=== PATIENT | female | born 1955 | race Caucasian/White ===

== ENCOUNTER → 2023-02-18 | Outpatient (CLI) | payer MEDICARE, SELFPAY ==
[2023-02-18 12:29] LABS: Absolute Lymphocyte Count 1.56 X10^3/uL (0.83-4.51); Absolute Neutrophil Count 3.1 X10^3/uL (2.0-7.7); Basophil# 0.03 X10^3/uL; Basophil% 0.6 % (0-1); Eosinophil# 0.18 X10^3/uL; Eosinophils% 3.3 % (0-5); Hematocrit 40.2 % (37-47); Hemoglobin 12.8 g/dL (12.0-15.0); Lymphocyte # 1.56 X10^3/ul (0.83-4.51); Mean Corp Hgb Conc 31.8 g/dL (32-36); Mean Corpuscular Hgb 29.6 pg (27.0-32.0); Mean Corpuscular Volume 92.8 fL (81-99); Mean Platelet Vol. 10.1 fl (6.2-12.0); Monocyte# 0.51 X10^3/uL; Monocyte% 9.5 % (0-10); NRBC Flagged by Analyzer 0 % (0-5); Neutrophil # 3.08 X10^3/uL (2.7-7.7); Neutrophil % 57.2 % (47-70); Platelet Count 200 K/mm3 (150-450); RBC Distribution Width CV 12.7 % (11.6-14.6); RBC Distribution Width SD 43.4 fl (35.1-43.9); Red Blood Count 4.33 M/mm3 (4.2-5.4); White Blood Count 5.4 K/mm3 (4.4-11.0)
[2023-02-18 12:45] LABS: Hemoglobin A1c 6.4 % (3.8-5.6)
[2023-02-18 12:59] LABS: ALB/GLOB Ratio 0.9 RATIO (0.9-2.4); AST(SGOT) 21 U/L (15-37); Alanine Aminotransfer ALT/SGPT 24 U/L (13-56); Albumin, Serum 3.5 g/dL (3.2-5.0); Alkaline Phosphatase 89 U/L (45-117); Anion Gap 5 (5-15); BUN 17 mg/dL (7-18); Calcium,Total 9.1 mg/dL (8.5-10.1); Chloride 106 mmol/L (98-107); Cholesterol 202 mg/dL (200); Creatinine, Serum 1.06 mg/dL (0.55-1.02); EST Glomerular Filtration Rate 55 mL/min (>60); Est Glom Filt Rate - Afr Amer 67 mL/min (>60); Globulin 3.8 g/dL (2.2-4.2); Glucose 166 mg/dL (74-106); High Density Lipoprotein 73 mg/dL; Potassium 4.2 mmol/L (3.5-5.1); Protein, Total 7.3 g/dL (6.4-8.2); Sodium Level 137 mmol/L (136-145); Thyroid Stim Hormone (TSH) 2.52 uIU/mL (0.358-3.74); Triglycerides 101 mg/dL; Very Low Density Lipoprotein 20 mg/dL (5-40)
== END | disposition home or self-care (01) ==
PROVIDERS: PCP Internal Medicine; Referring Provider Internal Medicine; Visit Provider Internal Medicine
DX: E78.5 Hyperlipidemia, unspecified (principal); E11.9 Type 2 diabetes mellitus without complications; E03.9 Hypothyroidism, unspecified
CPT/HCPCS: 36415; 80053; 80061; 83036; 84443; 85025

== ENCOUNTER → 2023-03-19 | Outpatient (CLI) | payer MEDICARE, OTHER, SELFPAY ==
--- NOTE | 2023-03-19 14:15 | SP.MBSS_ITS ---
Modified Barium Swallow Patient Information Study Date: 03/19/23 Study Time: 13:10 Direct Billable Minutes: 90 Total Minutes procedure & reportin Diagnosis: Dysphagia Referring Physician: Marcial Riley Reason for Referral: Patient reports difficulty swallowing large pills. Additionally endorses coughing w/ liquids and on her own saliva (~1x/month) w/ subsequent hoarse vocal quality following these events. Medical History: Hypothyroidism, HLD, HTN, DMII Current Diet Ordered: Regular Textures/Thin Liquids Dentition: WNL Mental Status: WNL Respiratory Status: Oxygenating on Room Air Penetration-Aspiration Scale Penetration-Aspiration Scale: OBJECTIVE ASSESSMENT OF SWALLOW FUNCTION (QUANTITATIVE ? PER TRIAL): PENETRATION / ASPIRATION SCALE (GOODRICH): 1 = does not enter airway 2 = enters airway/above vocal folds/ejected 3 = enters airway/above vocal folds/not ejected 4 = enters airway/contacts vocal folds/ejected 5 = enters airway/contacts vocal folds/not ejected 6 = enters airway/below vocal folds/ejected 7 = enters airway/below vocal folds/not ejected despite effort 8 = enters airway/below vocal folds/no effort VIDEOFLOROSCOPIC SCALE SCORE (GOODRICH): Grade I = aspiration of material that has penetrated into the laryngeal vestibule, intact cough reflex Grade II = aspiration < 10 % of the bolus, intact cough reflex Grade III = aspiration of < 10 % of the bolus, reduced cough reflex or aspiration of > 10 % of the bolus, intact cough reflex Grade IV = aspiration of > 10 % of the bolus, reduced cough reflex Penetration-Aspiration Scale Score Thin via teaspoon: Result: 1= does not enter airway Thin via teaspoon trial 2: Result: 1= does not enter airway Thin via cup: Result: 1= does not enter airway Thin sequential swallows via cup: Result: 1= does not enter airway Thin via straw: Result: 1= does not enter airway Pudding: Result: 1= does not enter airway Pudding w/ esophageal screening: Result: 1= does not enter airway Cookie: Result: 1= does not enter airway Oral Phase Labial Seal: No Labial Escape Tongue Control During Bolus Hold: Cohesive bolus between tongue to palatal seal Bolus Preparation/Mastication: Timely and efficient chewing and mashing Bolus Transport/Lingual Motion: Brisk tongue motion Oral Residue: Trace residue lining oral structures Pharyngeal Phase Initiation of Pharyngeal Swallow: Bolus head at posterior angle of ramus at first hyoid excursion Soft Palate Elevation: No bolus between soft palate and pharyngeal wall Laryngeal Elevation: Comp. Superior move thyroid cart w/comp. apprx arytenoid cart-epig pet Anterior Hyoid Excursion: Complete anterior movement Epiglottic Movement: Complete inversion Laryngeal Vestibule Closure at Height of Swallow: Complete; no air/contrast in laryngeal vestibule Pharyngeal Stripping Wave: Present - complete Pharyngoesophageal Segment Opening: Parital distension and partial duration; parital obstruction of flow (*cricopharyngeal prominence w/ narrowed PES opening without obstruction, NO impact on bolus flow through the PES ) Tongue Base Retraction: Trace column of contrast between tongue base & post. pharyngeal wall Pharyngeal Residue: Trace residue within or on pharyngeal structures (*pudding trace accumulation on the anterior surface of the epiglottis w/in the valleculae) Esophageal Phase Esophageal Clearance: Esophageal retention Diagnosis/Impression Diagnosis: Oropharyngeal swallow is grossly within functional limits Impression: Swallow function is marked by: * trace accumulation of residue on the anterior surface of the epiglottis w/in the valleculae * narrow PES distention, although this had no impact on bolus clearance through the PES into the esophagus * slowed esophageal bolus clearance was appreciated * no retrograde flow through the PES was observed during this study * throat clearing and burping was noted during this study when fluoro was not in use * further assessment of esophageal function should be considered (GI referral), as reflux may be contributing factor Recommendations Diet: Regular Textures and Thin Liquids Compensatory Strategies: Slow Rate, Sitting upright and Remain sitting upright for 30 minutes after PO intake Recommend Repeat Modified Barium Swallow: No Need for Skilled Speech Therapy Services: No Recommended Referrals: GI Consult Education Completed: 1. Described result of evaluation. and 2. Pt understands evaluation & agrees with goals and treatment plan. Status Active ST Patient: Active Contact Information [facility] Speech Therapy:: Jazmin Arthur M.A., [facility] [employer] [employer] A[employer] Speech Language Pathologist [place] [id number] [place] [address] [email or web address] [phone]
== END | disposition home or self-care (01) ==
LOC: RAD 12:39
PROVIDERS: PCP Internal Medicine; Referring Provider Internal Medicine; Visit Provider Internal Medicine
DX: R13.10 Dysphagia, unspecified (principal)
CPT/HCPCS: 74230; 92611

== ENCOUNTER 2023-04-27 20:09 | Emergency (ER) | payer MEDICARE, OTHER, SELFPAY ==
[2023-04-27 20:10] VITALS: BP 180/95; PULSE 100; RESP 16; TEMP 36.6; O2SAT 95; BMI 35.9
--- NOTE | 2023-04-27 21:06 | CT_ITS ---
INDICATION: blunt trauma -- please include lower right ribs EXAMINATION: CT CHEST WITHOUT CONTRAST - CT Chest W/O Contrast Injection TECHNIQUE: Helically acquired images were obtained of the chest. A radiation dose optimization technique was used for this scan. IV Contrast dosage and agent: None. COMPARISON: None. FINDINGS: LUNGS, PLEURA AND LARGE AIRWAYS: No masses, consolidation, or edema. No pleural effusion or thickening. No pneumothorax. THYROID: No thyroid lesions. HEART AND PERICARDIUM: Heart size is normal. No pericardial effusion. CORONARY ARTERIES: Mild coronary artery calcification VESSELS: Mild atherosclerotic changes of the aorta without evidence for aneurysm MEDIASTINUM AND RAFFI: No mediastinal or hilar adenopathy. Esophagus is unremarkable. No hiatal hernia. UPPER ABDOMEN: Tiny nonobstructing left renal calculus BONES: No acute fractures identified Dorsal spine demonstrates mild spondylosis No suspicious lytic or blastic abnormality. CT/Chest without Contrast IMPRESSION: ASHD. No acute abnormalities identified. Incidental finding of tiny nonobstructing left renal calculus Electronically Signed: Scotty Clarke MD at 22:39 EDT ,
--- NOTE | 2023-04-27 21:56 | ED.VIS.FALL ---
HPI HPI - Fall History of Present Illness Chief Complaint: Fall Informant: patient Narrative Narrative: 67-year-old female presenting to the emergency room with a chief complaint of fall. Patient states that she was in her living room and missed stepped off the back of her flip-flops and started to fall backwards. She landed on her buttock but injured the right lower ribs on furniture. No loss of consciousness. She has been able to ambulate. She denies any shortness of breath or hemoptysis. Her pain seems to be localized over the anterior mid axillary line of the lower right ribs. PFSH PFS Medical History Arthritis Cataract Dermatitis Health care maintenance High cholesterol History of pneumonia Hyperlipidemia Hypertension Hypothyroidism Kidney stones Seasonal allergies Swallowing disorder Thyroid disease Type 2 diabetes mellitus Home Medications bupropion HCl 150 mg 24 hr tablet, extended release 150 mg PO DAILY 02/18/23 [History Last Taken Unknown] coenzyme Q10 10 mg capsule (Co Q-10) 10 mg PO ONCE 02/18/23 [History Last Taken Unknown] levothyroxine 25 mcg tablet 25 mcg PO DAILY 02/18/23 [History Last Taken Unknown] metformin 500 mg tablet 500 mg PO BID 02/18/23 [History Last Taken Unknown] pitavastatin calcium 1 mg tablet (Livalo) 1 mg PO DAILY 02/18/23 [History Last Taken Unknown] plecanatide 3 mg tablet (Trulance) 3 mg PO DAILY 02/18/23 [History Last Taken Unknown] Allergy/AdvReac Type Severity Reaction Status Date / Time No Known Allergies Allergy Verified 04/27/23 20:11 Family History Father Stomach cancer Mother Pulmonary fibrosis Uncle Pulmonary fibrosis Other Cancer Respiratory disease Skin cancer Surgical History History of hysterectomy History of rotator cuff surgery Social History Smoking Status: Never smoker alcohol intake: never substance use type: does not use what type of physical activity do you participate in: none ROS ROS ED Constitutional Constitutional ED: Denies chills or weight loss Eyes Eyes: Denies change in vision or diplopia ENT ENT ED: Denies ear pain, rhinorrhea or sore throat Cardiovascular Cardiovascular: Reports chest pain; Denies orthopnea, palpitations or racing heartbeat Respiratory/Chest Respiratory/Chest: Denies cough, dyspnea, dyspnea on exertion or orthopnea Gastrointestinal Gastrointestinal: Denies abdominal pain, diarrhea, nausea or vomiting Genitourinary Genitourinary ED: Denies dysuria, hematuria or urinary frequency Musculoskeletal Musculoskeletal: Denies arthralgias or myalgias Integumentary Denies abscess or rash Neurologic Neurologic: Denies headache(s) or weakness Psychiatric Psychiatric: Denies anxiety, depression, suicidal ideation or suicidal thoughts Endocrine Endocrinology: Denies polydipsia, polyphagia or polyuria Allergic/Immunologic Allergic/Immunologic ED: Denies mouth swelling, tongue swelling or urticaria EXAM Physical Exam Const Vital Signs: 04/27/23 20:10 04/27/23 20:52 Temperature 98 F Temperature Source Temporal Pulse Rate 100 Respiratory Rate 16 Respiratory Effort Normal Respiratory Pattern Normal Blood Pressure 180/95 H Blood Pressure Mean 123 Pulse Ox 95 Oxygen Delivery Method Room Air Positive well nourished and well developed General Appearance ED: well developed HEENT Reports normocephalic, head/scalp atraumatic and moist mucous membranes Eyes PERRL and EOMs intact bilaterally Neck no lymphadenopathy, supple and no JVD Chest Wall Chest Narrative: Tender to palpation mid axillary to anterior lower right ribs. There is no crepitance. No ecchymosis or swelling noted Resp normal respiratory effort and clear to auscultation bilaterally Cardio regular rate, regular rhythm and no murmurs GI normal to inspection, nondistended, normoactive bowel sounds and non-tender Palpation: soft Back/Spine no CVA tenderness and normal ROM Extremity normal to inspection General Extremety ED: Negative for edema General Extremity: Negative for edema Neuro oriented x3 and CN's II-XII intact bilaterally Sensorium / Orientation: alert Motor Exam: strength 5/5 throughout Psych mental status grossly normal Mood & Affect: Negative for depressed or tearful Skin no rashes or lesions noted and no wounds MDM MDM MDM Narrative Medical decision making narrative: CT of the chest was obtained. There are no obvious rib fractures pneumothorax or pulmonary contusion seen. Patient will be discharged home with supportive care. Instructions for deep breathing exercises and follow-up. Discharge Plan Triage Chief Complaint: Fall ED Provider: Abdirizak Khan Dx/Rx/DC Orders Clinical Impression: Contusion of rib on right side, Fall Instructions: ED Chest Wall Contusion Prescriptions: No Action levothyroxine 25 mcg tablet 25 mcg PO DAILY Patient Comments: TAKE 1 TABLET BY MOUTH EVERY DAY bupropion HCl 150 mg tablet extended release 24 hr 150 mg PO DAILY Patient Comments: TAKE 1 TABLET BY MOUTH EVERY DAY Livalo 1 mg tablet 1 mg PO DAILY Patient Comments: TAKE 1 TABLET BY MOUTH EVERY DAY AT NIGHT coenzyme Q10 [Co Q-10] 10 mg capsule 10 mg PO ONCE Trulance 3 mg tablet 3 mg PO DAILY Patient Comments: TAKE 1 TABLET BY MOUTH ONCE A DAY BEFORE BREAKFAST FOR 30 DAYS metformin 500 mg tablet 500 mg PO BID Patient Comments: TAKE 1 TABLET BY MOUTH THREE TIMES A DAY Primary Care Provider: Marcial Riley Referrals: Marcial Riley MD [Primary Care Provider] - As Needed Activity Restrictions/Additional Instructions: Please try to take a deep breath at least twice an hour while awake. This will help prevent pneumonia. As discussed you may try throat pillow to help move a round.
[2023-04-27] MEDS: HYDROcodone Bitartrate/Apap 5/325 Tablet PO (22:51)
[2023-04-27 23:01] VITALS: RESP 16
== END 2023-04-27 23:02 | disposition home or self-care (01) ==
LOC: ED 21:10
PROVIDERS: Emergency Provider Emergency Medicine; PCP Internal Medicine; Visit Provider Emergency Medicine
DX: S20.211A Contusion of right front wall of thorax, initial encounter (principal); E11.9 Type 2 diabetes mellitus without complications; E78.00 Pure hypercholesterolemia, unspecified; I10 Essential (primary) hypertension; W18.39XA Other fall on same level, initial encounter; Y92.89 Other specified places as the place of occurrence of the external cause; E03.9 Hypothyroidism, unspecified; Z79.899 Other long term (current) drug therapy; Z79.84 Long term (current) use of oral hypoglycemic drugs; Z90.710 Acquired absence of both cervix and uterus
CPT/HCPCS: 71250; 99283

== ENCOUNTER → 2023-08-23 | Outpatient (CLI) | payer MEDICARE, OTHER, SELFPAY ==
[2023-08-23 10:04] LABS: Bacteria 0 SEEN /hpf (None Seen); Mucous, Urine 0 SEEN /hpf (<or=2+)
--- OUTSIDE RECORDS SUMMARY | 2023-08-23 11:04 | XMS RPT_ITS | CCD ---
Author Name Unknown Address [address] [place] [address] Organization [facility] Care Team Providers Care Melter Clerk Name Role Phone Unavailable Primary Care Provider CECILIA Schafer Referring Unavailable Medications Current Medications Medication Drug Class(es) Dates Sig (Normalized) Sig (Original) doxycycline hyclate 100 mg oral tablet (1 source) Tetracycline-cla ss Drug Start: 07-20-2023 End: 07-27-2023 take 1 tablet by mouth twice daily doxycycline (VIBRA-TABS) 100 mg tablet Indications: Rhinosinusitis Take 1 tablet by mouth two times a day for 7 days. 14 tablet 0 07/20/2023 07/27/2023 Active Completed/Discontinued Medications Medication Drug Class(es) Dates Sig (Normalized) Sig (Original) [id number] 200 actuat albuterol 0.09 mg/actuat metered dose inhaler (1 source) beta2-Adrenergic Agonist Start: 08-03-2023 take 2 puff(s) by inhalation every four hours as needed albuterol HFA (PROAIR HFA) 90 mcg/actuation inhaler Inhale 2 Puffs as instructed every 4 hours as needed. 18 g 0 08/03/2023 Active Problems Problem Classification Problem Date Documented Da te Episodic/Chronic Other lower respiratory disease (1 source) Cough; Translations: [Acute cough] 08-03-2023 Episodic Other upper respiratory infections (1 source) Chronic sinusitis, unspecified; Translations: [Unspecified sinusitis (chronic)] 07-20-2023 Chronic Unclassified (1 source) Acute cough; Translations: [Acute cough] Onset: 08-03-2023 Results Test Name Value Interpretation Reference Range Facil ity Vital Signs Date Time Vital Sign Value Performing Clinician Faci lity 08-03-2023 11:13-0500 Body temperature 98.01 [degF] Cecilia John ASPHALT TAMPING MACHINE OPERATOR.STEREO PLOTTER OPERATOR Work Phone: [facility] 08-03-2023 11:13-0500 Body weight 96.62 kg Cecilia John ASPHALT TAMPING MACHINE OPERATOR.STEREO PLOTTER OPERATOR Work Phone: [facility] 08-03-2023 11:13-0500 Diastolic blood pressure 82 mm[Hg] Cecilia John ASPHALT TAMPING MACHINE OPERATOR.STEREO PLOTTER OPERATOR Work Phone: [facility] 08-03-2023 11:13-0500 Heart rate 94 /min Cecilia John ASPHALT TAMPING MACHINE OPERATOR.STEREO PLOTTER OPERATOR Work Phone: [facility] 08-03-2023 11:13-0500 Respiratory rate 18 /min Cecilia John ASPHALT TAMPING MACHINE OPERATOR.STEREO PLOTTER OPERATOR Work Phone: [facility] 08-03-2023 11:13-0500 SaO2% (BldA) [Mass fraction] 98 % Cecilia John ASPHALT TAMPING MACHINE OPERATOR.STEREO PLOTTER OPERATOR Work Phone: [facility] 08-03-2023 11:13-0500 Systolic blood pressure 140 mm[Hg] Cecilia John ASPHALT TAMPING MACHINE OPERATOR.STEREO PLOTTER OPERATOR Work Phone: [facility] 07-20-2023 14:28-0500 Body temperature 98.1 [degF] Rose Sanz ASPHALT TAMPING MACHINE OPERATOR.STEREO PLOTTER OPERATOR Work Phone: [facility] 07-20-2023 14:28-0500 Body weight 97.61 kg Rose Sanz ASPHALT TAMPING MACHINE OPERATOR.STEREO PLOTTER OPERATOR Work Phone: [facility] 07-20-2023 14:28-0500 Diastolic blood pressure 84 mm[Hg] Rose Sanz ASPHALT TAMPING MACHINE OPERATOR.STEREO PLOTTER OPERATOR Work Phone: [facility] 07-20-2023 14:28-0500 Heart rate 93 /min Rose Sanz ASPHALT TAMPING MACHINE OPERATOR.STEREO PLOTTER OPERATOR Work Phone: [facility] 07-20-2023 14:28-0500 Respiratory rate 18 /min Rose Sanz ASPHALT TAMPING MACHINE OPERATOR.STEREO PLOTTER OPERATOR Work Phone: [facility] 07-20-2023 14:28-0500 SaO2% (BldA) [Mass fraction] 96 % Rose Sanz APRN.CNP Work Phone: [facility] 07-20-2023 14:28-0500 Systolic blood pressure 142 mm[Hg] Rose Snaz APRN.CNP Work Phone: [facility] Encounters Encounter Date Encounter Type Care Provider Facility Start: 08-03-2023 End: 08-03-2023 ambulatory CECILIA LOPEZ Facility:[facility] Start: 08-03-2023 End: 08-03-2023 Patient encounter procedure Cecilia Lopez MEEK Work Phone: [facility] Plan of Treatment Date Care Activity Detail Author Start: 04-19-2023 Influenza vaccination Influenza Vacc ine (#1) [facility] Start: 08-19-2022 Advance Directive Discussion Advance Directive Discussion [facility] Start: 08-19-2022 Depression Assessment Depression Ass essment [facility] Start: 2021 Bone Density Screening Bone Density Screening [facility] Start: 2021 Pneumococcal Vaccine : 65+ (1 - PCV) Pneumococcal Vaccine: 65+ (1 - PCV) [facility] Start: 2021 Pneumococcal Vaccine : 65+ (1 of 1 - PCV) Pneumococcal Vaccine: 65+ (1 of 1 - PCV) [facility] Start: 2021 Screening for osteoporosis Bone Dens ity Screening [facility] Start: 2016 RSV Vaccine (1 - 1-d ose 60+ series) RSV Vaccine (1 - 1-dose 60+ series) [facility] Start: 2006 Shingrix Vaccine (1 of 2) Shingrix V accine (1 of 2) [facility] Start: 2001 Cologuard (FIT-DNA) Cologuard (FIT-D NA) [facility] Start: 2001 Colonoscopy Colonoscopy [facility] Start: 2001 Colorectal Cancer Screening Colorectal Cancer Screening [facility] Start: [address] Colonography [facility] Start: 2001 Diabetes Screening Diabetes Screenin g [facility] Start: 2001 Fecal Occult Blood Fecal Occult Bloo d [facility] Start: 2001 Lipid 1996 panel - S keenan or Plasma Lipid Screening [facility] Start: 2001 Lipid panel Lipid Screening [facility] Start: 2001 Screening for malign ant neoplasm of colon [facility] Start: 2001 [facility] Start: 1996 Mammography Mammogram Screening [facility] Start: 1996 Screening for malign ant neoplasm of breast Mammogram Screening [facility] Start: 1975 Urine microalbumin profile DTa P,Tdap,Td Vaccine (1 - Tdap) [facility] Start: 1974 Hepatitis C Screening Hepatitis C Sc [facility] Start: 1974 Hepatitis C screening Hepatitis C [facility] Start: 1956 Covid-19 Vaccine (#1) Covid-19 Vacci ne (#1) [facility] Payers Date Payer Category Payer Unknown [facility] [employer] [id number] 2022-Present [address] [place] [address] Indemnity [id number] 2022 Unknown [id number] 2021 Medicare MEDICARE MEDICAR E A AND B [id number] 2021-Present [phone] [place] [address] Medicare [id number] 2021 Medicare [id number] Social History Date Type Detail Facility Start: 07-20-2023 Tobacco smoking stat us NHIS Never smoked tobacco [facility] Start: 07-20-2023 Tobacco use and exposure Smoke less tobacco non-user [facility] Start: 07-20-2023 End: 08-03-2023 History of Social function [facility] Start: 07-20-2023 End: 08-03-2023 Tobacco use panel [facility] Start: 1955 Sex Assigned At Not on file [facility] Progress note 08-03-2023 Note Date & Type Note Facility 08-03-2023 Note HNO ID: [id number] Author: Shanel Ocasio RT(Mili) Service: ? Author Type: Executive Steward Type: Progress Notes Filed: 08/03/2023 11:50 AM Note Text: Radiology Service Progress Note PATIENT NAME: Yisel Gonzalez DATE OF SERVICE: August 03, 2023 TIME: 11:41 AM PATIENT IDENTITY VERIFICATION COMPLETED USING TWO (2) IDENTIFIERS: Name and Date of confirmed by patient verbally. FALL SCREENING: Has the patient had 2 falls in the last year or 1 fall with injury or currently using an Ambulatory Assistive Device (Walker, Cane, Wheelchair, Crutches, etc.)? No PATIENT GENDER DATA: Female. status: : No status: NO. PATIENT RELEVANT IMPLANT DATA REVIEWED: Yes RADIOLOGY DEPARTMENT: General X-ray: Exam(s) Completed: Chest X-Ray PERIPHERAL IV DATA: Not applicable SIGNED BY: RT Elizabeth(R) August 03, 2023 11:[address] [facility] Progress note 08-03-2023 Note Date & Type Note Facility 08-03-2023 Note HNO ID: [id number] Author: Cecilia Lpoez APRN.STEREO PLOTTER OPERATOR Service: ? Author Type: Nurse Practitioner Type: Progress Notes Filed: 08/03/2023 12:45 PM Note Text: Subjective The history is provided by the patient. No russian language instructor was used. HPI Yisel Gonzalez is a 68 year old female who presents today for CC of cough and chest congestion for 2 weeks. She had nasal drainage that seemed to improve, but still having chest congestion and cough. She has used otc cough and cold medications without relief. Took doxycycline for sinusitis on 07/20/2023 BP 140/82 Pulse 94 Temp 36.7 ?C (98 ?F) Resp 18 Wt 96.6 kg (213 lb) SpO2 98% Social History Tobacco Use Smoking status: Never Smokeless tobacco: Never History reviewed. No pertinent past medical history. I have confirmed and edited as necessary, the [facility] Review of Systems Constitutional: Negative for chills and fever. HENT: Negative for congestion, ear pain, sinus pain and sore throat. Respiratory: Positive for cough. Negative for sputum production, shortness of breath and wheezing. Cardiovascular: Negative for chest pain. Musculoskeletal: Negative for myalgias. Neurological: Negative for headaches. Objective Physical Exam Vitals and nursing note reviewed. HENT: Head: Normocephalic and atraumatic. Right Ear: Tympanic membrane, ear canal and external ear normal. Left Ear: Tympanic membrane, ear canal and external ear normal. Nose: No mucosal edema, congestion or rhinorrhea. Right Sinus: No maxillary sinus tenderness or frontal sinus tenderness. Left Sinus: No maxillary sinus tenderness or frontal sinus tenderness. Mouth/Throat: Pharynx: Uvula midline. No oropharyngeal exudate or posterior oropharyngeal erythema. Cardiovascular: Rate and Rhythm: Normal rate and regular rhythm. Heart sounds: Normal heart sounds. Pulmonary: Effort: Pulmonary effort is normal. Breath sounds: Normal breath sounds. Lymphadenopathy: Head: Right side of head: No submental, submandibular or tonsillar adenopathy. Left side of head: No submental, submandibular or tonsillar adenopathy. Cervical: No cervical adenopathy. Skin: General: Skin is warm and dry. Neurological: Mental Status: She is alert. Psychiatric: Mood and Affect: Affect normal. ASSESSMENT/PLAN: 1. Acute cough - ICD9: 786.2, ICD10: R05.1 Advised post viral cough Albuterol inhaler as needed for cough Shashank Holbrook Follow up with pcp as needed - XR CHEST 2V FRONTAL/LAT RESULT: Lines, tubes, and devices: None. Lungs and pleura: No consolidation. No lung mass. No pleural effusion. No pneumothorax. Cardiomediastinal silhouette: Normal cardiomediastinal silhouette. Bones and soft tissues: Unremarkable. IMPRESSION: Unremarkable exam with no acute radiographic abnormality. Interpreted by : ADALI WALLIS MD Diagnosis and treatment plan were discussed and questions were answered to the patient's satisfaction. Pt acknowledged understanding of concepts and follow up plan. Specific signs and symptoms that would indicate the need for higher level of care were discussed in detail warranting prompt ER evaluation. Cecilia Lopez APRN.RAS [facility] History of Present illness Narrative 08-03-2023 Cecilia Lopez APRN.RAS - 08/03/2023 11:31 AM EST Note Date & Type Note Facility 08-03-2023 History of Presen t illness Narrative Subjective The history is provided by the patient. No russian language instructor was used. HPI Yisel Gonzalez is a 68 year old female who presents today for CC of cough and chest congestion for 2 weeks. She had nasal drainage that seemed to improve, but still having chest congestion and cough. She has used otc cough and cold medications without relief. Took doxycycline for sinusitis on 07/20/2023 BP 140/82 Pulse 94 Temp 36.7 C (98 F) Resp 18 Wt 96.6 kg (213 lb) SpO2 98% Social History Tobacco Use Smoking status: Never Smokeless tobacco: Never History reviewed. No pertinent past medical history. I have confirmed and edited as necessary, the [facility] Review of Systems Constitutional: Negative for chills and fever. HENT: Negative for congestion, ear pain, sinus pain and sore throat. Respiratory: Positive for cough. Negative for sputum production, shortness of breath and wheezing. Cardiovascular: Negative for chest pain. Musculoskeletal: Negative for myalgias. Neurological: Negative for headaches. Objective Physical Exam Vitals and nursing note reviewed. HENT: Head: Normocephalic and atraumatic. Right Ear: Tympanic membrane, ear canal and external ear normal. Left Ear: Tympanic membrane, ear canal and external ear normal. Nose: No mucosal edema, congestion or rhinorrhea. Right Sinus: No maxillary sinus tenderness or frontal sinus tenderness. Left Sinus: No maxillary sinus tenderness or frontal sinus tenderness. Mouth/Throat: Pharynx: Uvula midline. No oropharyngeal exudate or posterior oropharyngeal erythema. Cardiovascular: Rate and Rhythm: Normal rate and regular rhythm. Heart sounds: Normal heart sounds. Pulmonary: Effort: Pulmonary effort is normal. Breath sounds: Normal breath sounds. Lymphadenopathy: Head: Right side of head: No submental, submandibular or tonsillar adenopathy. Left side of head: No submental, submandibular or tonsillar adenopathy. Cervical: No cervical adenopathy. Skin: General: Skin is warm and dry. Neurological: Mental Status: She is alert. Psychiatric: Mood and Affect: Affect normal. ASSESSMENT/PLAN: 1. Acute cough - ICD9: 786.2, ICD10: R05.1 Advised post viral cough Albuterol inhaler as needed for cough Shashank Holbrook Follow up with pcp as needed - XR CHEST 2V FRONTAL/LAT RESULT: Lines, tubes, and devices: None. Lungs and pleura: No consolidation. No lung mass. No pleural effusion. No pneumothorax. Cardiomediastinal silhouette: Normal cardiomediastinal silhouette. Bones and soft tissues: Unremarkable. IMPRESSION: Unremarkable exam with no acute radiographic abnormality. Interpreted by : ADALI WALLIS MD Diagnosis and treatment plan were discussed and questions were answered to the patient's satisfaction. Pt acknowledged understanding of concepts and follow up plan. Specific signs and symptoms that would indicate the need for higher level of care were discussed in detail warranting prompt ER evaluation. Cecilia Lopez APRN.STEREO PLOTTER OPERATOR documented in this encounter [facility] Progress note 07-20-2023 Note Date & Type Note Facility 07-20-2023 Note HNO ID: [id number] Author: Rose Sanz APRN.RAS Service: ? Author Type: Nurse Practitioner Type: Progress Notes Filed: 07/20/2023 2:51 PM Note Text: CC: Patient presents with: Sore Throat: ST and congestion x 9 days HPI: Yisel Gonzalez is a 68 year old female who presents to the office with complaint of head congestion, cough, nonproductive, and sore throat for 9 days. Symptoms are improving Associated symptoms includes sore throat. Denies fever, nausea, vomiting , and diarrhea. Treatments tried include nothing so far. with no relief of symptoms. Sick contacts: unknown. History of asthma, frequent episodes of bronchitis, chronic bronchitis, bronchiectasis or COPD: No Smoker: No Seasonal/environmental allergies: No The ROS is otherwise negative. The patient's pmh, medications, allergies, and past visits are reviewed. PHYSICAL EXAM: BP 142/84 Pulse 93 Temp 36.7 ?C (98.1 ?F) (Tympanic) Resp 18 Wt 97.6 kg (215 lb 3.2 oz) SpO2 96% General appearance: alert, cooperative, pleasant, in no acute distress Head: Normocephalic Eyes: EOM's intact, conjunctiva pink and moist, no icterus, sclera white, non-injected Ears: Right ear: External ear/canal- Normal, TM - clear with good landmarks. Left ear: External ear/canal- Normal, TM - clear with good landmarks Oropharynx:moist without lesions, No erythema, exudates or tonsillar hypertrophy. Heart: Negative. RRR without obvious murmur, gallop, or rubs. No ectopy. Lungs: clear to auscultation, without rales or wheeze, good air exchange History reviewed. No pertinent past medical history. No past surgical history on file. ALLERGIES Patient has no known allergies. MEDICATIONS levothyroxine (SYNTHROID) 25 mcg tablet Take by mouth. olopatadine (PATANOL) 0.1 % ophthalmic solution INSTILL 1 DROP IN BOTH EYES TWICE A DAY X 3 MONTHS No family history on file. Social History Tobacco Use Smoking status: Never Smokeless tobacco: Never ASSESSMENT/PLAN: 1. Rhinosinusitis - ICD9: 473.9, ICD10: J32.9 - DOXYCYCLINE HYCLATE 100 MG TABLET Prescription instructions reviewed with patient as applicable. Potential red flag symptoms discussed with the patient. Reviewed appropriate action plan to take if red flag symptoms occur. Patient agreeable to treatment plan. Rose Sanz APRN.RAS [facility] History of Present illness Narrative 07-20-2023 Rose Sanz APRN.STEREO PLOTTER OPERATOR - 07/20/2023 2:49 PM EST Note Date & Type Note Facility 07-20-2023 History of Presen t illness Narrative CC: Patient presents with: Sore Throat: ST and congestion x 9 days HPI: Yisel Gonzalez is a 68 year old female who presents to the office with complaint of head congestion, cough, nonproductive, and sore throat for 9 days. Symptoms are improving Associated symptoms includes sore throat. Denies fever, nausea, vomiting , and diarrhea. Treatments tried include nothing so far. with no relief of symptoms. Sick contacts: unknown. History of asthma, frequent episodes of bronchitis, chronic bronchitis, bronchiectasis or COPD: No Smoker: No Seasonal/environmental allergies: No The ROS is otherwise negative. The patient's pmh, medications, allergies, and past visits are reviewed. PHYSICAL EXAM: BP 142/84 Pulse 93 Temp 36.7 C (98.1 F) (Tympanic) Resp 18 Wt 97.6 kg (215 lb 3.2 oz) SpO2 96% General appearance: alert, cooperative, pleasant, in no acute distress Head: Normocephalic Eyes: EOM's intact, conjunctiva pink and moist, no icterus, sclera white, non-injected Ears: Right ear: External ear/canal- Normal, TM - clear with good landmarks. Left ear: External ear/canal- Normal, TM - clear with good landmarks Oropharynx:moist without lesions, No erythema, exudates or tonsillar hypertrophy. Heart: Negative. RRR without obvious murmur, gallop, or rubs. No ectopy. Lungs: clear to auscultation, without rales or wheeze, good air exchange History reviewed. No pertinent past medical history. No past surgical history on file. ALLERGIES Patient has no known allergies. MEDICATIONS levothyroxine (SYNTHROID) 25 mcg tablet Take by mouth. olopatadine (PATANOL) 0.1 % ophthalmic solution INSTILL 1 DROP IN BOTH EYES TWICE A DAY X 3 MONTHS No family history on file. Social History Tobacco Use Smoking status: Never Smokeless tobacco: Never ASSESSMENT/PLAN: 1. Rhinosinusitis - ICD9: 473.9, ICD10: J32.9 - DOXYCYCLINE HYCLATE 100 MG TABLET Prescription instructions reviewed with patient as applicable. Potential red flag symptoms discussed with the patient. Reviewed appropriate action plan to take if red flag symptoms occur. Patient agreeable to treatment plan. Rose Sanz APRN.STEREO PLOTTER OPERATOR documented in this encounter [facility] Evaluation note Note Date & Type Note Facility documented in this encounter [facility] Evaluation note Note Date & Type Note Facility documented in this encounter [facility] Summary Purpose Family History No Family History Records Found Advance Directives No Advanced Directives Records Found Additional Source Comments Source Comments (unrecognize d section and content) In the event this informatio n is protected by the Federal Confidentiality of Alcohol and Drug Abuse Patient Records regulations: The Federal rules restrict any use of the information to criminally investigate or prosecute any alcohol or drug abuse patient.[facility] the event this information is protected by the Federal Confidentiality of Alcohol and Drug Abuse Patient Records regulations: The Federal rules restrict any use of the information to criminally investigate or prosecute any alcohol or drug abuse patient.[facility] Reason for Visit (unrecogniz ed section and content) Reason Comments Cough With chest congestio n INFORMATION SOURCE (unrecogn ized section and content) FOR RECORDS PERTAINING TO PATIENTS WHO ARE OR HAVE BEEN ENROLLED IN A CHEMICAL DEPENDENCY/SUBSTANCEABUSE PROGRAM, SOME INFORMATION MAY BE OMITTED. This clinical summary was aggregated from multiple sources. Caution should be exercised in using it in the provision of clinical care. This summary normalizes information from multiple sources, and as a consequence, information in this document may materially change the coding, format and clinical context of patient data. In addition, data may be omitted in some cases. CLINICAL DECISIONS SHOULD BE BASED ON THE PRIMARY CLINICAL RECORDS. [facility] [employer] [facility]. provides no warranty or guarantee of the accuracy or completeness of information in this document.
[2023-08-23 12:48] LABS: Color, Urine Yellow (Yellow); Glucose, Dipstick Normal (Normal); Ketone-Dipstick 5 mg/dl (Negative); Leukocyte Esterase-Dipstick 25 /ul (Negative); Nitrite-Dipstick Negative (Negative); Occult Blood-Urine 10 /ul (Negative); Protein-Dipstick 15 mg/dl (Negative); Urine Bilirubin Dipstick Negative (Negative); Urine Clarity Sl. Cloudy (Clear); Urine Urobilinogen Normal (Normal)
[2023-08-23 12:59] LABS: Red Blood Cells-Urine 0-5 SEEN /hpf (0-5); Squamous Epithelial Cells - UA 0-5 SEEN /hpf (5-10); White Blood Cells 0-5 SEEN /hpf (0-5)
[2023-08-23 13:06] LABS: ALB/GLOB Ratio 0.9 RATIO (0.9-2.4); AST(SGOT) 30 U/L (15-37); Alanine Aminotransfer ALT/SGPT 37 U/L (13-56); Albumin, Serum 3.8 g/dL (3.2-5.0); Alkaline Phosphatase 89 U/L (45-117); Anion Gap 5 (5-15); BUN 16 mg/dL (7-18); BUN/Creat Ratio 16.6 RATIO (10-20); Calcium,Total 9.1 mg/dL (8.5-10.1); Chloride 106 mmol/L (98-107); Cholesterol 243 mg/dL (200); Creatinine, Serum 0.96 mg/dL (0.55-1.02); EST Glomerular Filtration Rate 62 mL/min (>60); Est Glom Filt Rate - Afr Amer 74 mL/min (>60); Globulin 4.1 g/dL (2.2-4.2); Glucose 192 mg/dL (74-106); High Density Lipoprotein 62 mg/dL; Potassium 4.5 mmol/L (3.5-5.1); Protein, Total 7.9 g/dL (6.4-8.2); Sodium Level 138 mmol/L (136-145); Thyroid Stim Hormone (TSH) 5.08 uIU/mL (0.358-3.74); Triglycerides 132 mg/dL; Very Low Density Lipoprotein 26 mg/dL (5-40)
== END | disposition home or self-care (01) ==
LOC: BIMLAB 10:02
PROVIDERS: PCP Internal Medicine; Referring Provider Internal Medicine; Visit Provider Internal Medicine
DX: E78.5 Hyperlipidemia, unspecified (principal); I10 Essential (primary) hypertension; E03.9 Hypothyroidism, unspecified
CPT/HCPCS: 36415; 80053; 80061; 81001; 84443

== ENCOUNTER → 2023-08-27 | Outpatient (CLI) | payer MEDICARE, OTHER, SELFPAY ==
--- NOTE | 2023-08-27 15:03 | BI_ITS ---
MAMMOGRAPHY - BILATERAL SCREENING REASON FOR EXAM: Female, 68 years old. Routine annual screening examination. PERTINENT HISTORY: Aunt with breast cancer. TECHNIQUE: Digital bilateral breast sandra (3D mammographic acquisition) in the CC and MLO projections. 2-D mediolateral oblique (MLO) and craniocaudad (CC) views of both breasts were obtained. CAD: Full Field Digital Mammography with Computer Added Detection was performed. COMPARISON: Comparison is made with prior outside examination dated May 11, 2022. FINDINGS: Breast Composition: The breasts are almost entirely fatty. There are no dominant masses or suspicious calcifications. No other significant abnormalities are identified. There has been no significant change since the prior study. BI/SCRN MAMM (CAD)W/SANDRA BILAT IMPRESSION: Stable bilateral screening mammogram. Yearly follow-up mammogram recommended. (A) ASSESSMENT CATEGORY: BIRADS Category 1: Negative. A letter regarding these results will be sent to the patient by the facility within 30 days. Approximately 10% of breast cancers are not detected by mammography. A normal mammogram should not delay biopsy of a clinically suspicious abnormality. [id number] Electronically Signed: Evelio Abel MD at 12:44 EST ,
--- NOTE | 2023-08-27 15:05 | BD_ITS ---
STUDY: DUAL ENERGY X-RAY ABSORPTIOMETRY / DXA REASON FOR EXAM: Female, 68 years old. Post Menopausal TECHNIQUE: Bone Mineral Density (BMD) measurements of lumbar spine and bilateral hips were obtained. COMPARISON: None. FINDINGS: Lumbar Spine (L1-L4): g/cm2 (0.770) / T-score (-3.0) / Z-score (-1.0) Findings are suggestive of osteoporosis with a high fracture risk. Left Femur Total: g/cm2 (0.854) / T-score (-0.7) / Z-score (0.6) Left Femoral Neck: g/cm2 (0.678) / T-score (-1.5) / Z-score (0.1) Right Femur Total: g/cm2 (0.831) / T-score (-0.9) / Z-score (0.4) Right Femoral Neck: g/cm2 (0.688) / T-score (-1.4) / Z-score (0.2) BD/Dexa Bone Density Study IMPRESSION: The patient is considered osteoporotic as outlined below according to World Theo Organization (WHO) criteria with a high fracture risk. Reference Information: The T-score is the number of standard deviations above or below the standard which is normal for young adults at their peak bone mineral density. The World Health Organization (WHO) interprets the T-scores as follows: Above -1 Normal bone density Between -1 and -2.5 Osteopenia Equal to / or below -2.5 Osteoporosis As a practical clinical guideline, osteopenia may be graded as follows: Mild -1 through -1.5 Moderate -1.6 through -2.0 Severe -2.1 through -2.4 The Z-score is the number of standard deviations above or below age-matched controls. A Z-score of less than -1.5 would be considered abnormal. References: 1. NIH Osteoporosis and Related Bone Diseases www osteo.org 2. International Society for Clinical Densitometry www iscd.org 3. National Osteoporosis Foundation www nof.org Electronically Signed: Evelio Abel MD at 12:37 EST ,
--- OUTSIDE RECORDS SUMMARY | 2023-08-27 16:40 | XMS RPT_ITS | CCD ---
Author Name Unknown Address [address] [place] [address] Organization [facility] Care Team Providers Care Plastering Supervisor Name Role Phone Unavailable Primary Care Provider [...] Drug Class(es) Dates Sig (Normalized) Sig (Original) [id number] 200 actuat albuterol 0.09 mg/actuat metered dose [...] 11:13-0500 Body temperature 98.01 [degF] Cecilia John INSURANCE AND BENEFITS CLERK.VINEYARD TENDER Work Phone: [facility] 08-03-2023 11:13-0500 Body weight 96.62 kg Cecilia John INSURANCE AND BENEFITS CLERK.VINEYARD TENDER Work Phone: [facility] 08-03-2023 11:13-0500 Diastolic blood pressure 82 mm[Hg] Cecilia John INSURANCE AND BENEFITS CLERK.VINEYARD TENDER Work Phone: [facility] 08-03-2023 11:13-0500 Heart rate 94 /min Cecilia John INSURANCE AND BENEFITS CLERK.VINEYARD TENDER Work Phone: [facility] 08-03-2023 11:13-0500 Respiratory rate 18 /min Cecilia John INSURANCE AND BENEFITS CLERK.VINEYARD TENDER Work Phone: [facility] 08-03-2023 11:13-0500 SaO2% (BldA) [Mass fraction] 98 % Cecilia John INSURANCE AND BENEFITS CLERK.VINEYARD TENDER Work Phone: [facility] 08-03-2023 11:13-0500 Systolic blood pressure 140 mm[Hg] Cecilia John INSURANCE AND BENEFITS CLERK.VINEYARD TENDER Work Phone: [facility] 07-20-2023 14:28-0500 Body temperature 98.1 [degF] Rose Sanz INSURANCE AND BENEFITS CLERK.VINEYARD TENDER Work Phone: [facility] 07-20-2023 14:28-0500 Body weight 97.61 kg Rose Sanz INSURANCE AND BENEFITS CLERK.VINEYARD TENDER Work Phone: [facility] 07-20-2023 14:28-0500 Diastolic blood pressure 84 mm[Hg] Rose Sanz INSURANCE AND BENEFITS CLERK.VINEYARD TENDER Work Phone: [facility] 07-20-2023 14:28-0500 Heart rate 93 /min Rose Sanz INSURANCE AND BENEFITS CLERK.VINEYARD TENDER Work Phone: [facility] 07-20-2023 14:28-0500 Respiratory rate 18 /min Rose Sanz INSURANCE AND BENEFITS CLERK.VINEYARD TENDER Work Phone: [facility] 07-20-2023 14:28-0500 SaO2% (BldA) [Mass fraction] 96 % Rose Sanz APRN.CNP Work Phone: [facility] 07-20-2023 14:28-0500 Systolic blood pressure 142 mm[Hg] Rose Sanz APRN.CNP Work Phone: [facility] Encounters Encounter Date Encounter Type Care Provider Facility Start: 08-03-2023 End: 08-03-2023 ambulatory CECILIA LOPEZ Facility:[facility] Start: 08-03-2023 End: 08-03-2023 Patient encounter procedure Cecilia Lopez MEEK Work Phone: [facility] Plan of Treatment Date Care Activity Detail Author Start: 04-19-2023 Influenza vaccination Influenza Vacc ine (#1) [facility] Start: 08-19-2022 Advance Directive Discussion Advance Directive Discussion [facility] Start: 08-19-2022 Depression Assessment Depression Ass essment [facility] Start: 2021 Bone Density Screening Bone Density Screening [facility] Start: 2021 Pneumococcal Vaccine : 65+ (1 - PCV) Pneumococcal Vaccine: 65+ (1 - PCV) [facility] Start: 2021 Pneumococcal Vaccine : 65+ (1 of 1 - PCV) Pneumococcal Vaccine: 65+ (1 of 1 - PCV) [facility] Start: 2021 Screening for osteoporosis Bone Dens ity Screening [facility] Start: 2016 RSV Vaccine (1 - 1-d ose 60+ series) RSV Vaccine (1 - 1-dose 60+ series) [facility] Start: 2006 Shingrix Vaccine (1 of 2) Shingrix V accine (1 of 2) [facility] Start: 2001 Cologuard (FIT-DNA) Cologuard (FIT-D NA) [facility] Start: 2001 Colonoscopy Colonoscopy [facility] Start: 2001 Colorectal Cancer Screening Colorectal Cancer Screening [facility] Start: [address] Colonography [facility] Start: 2001 Diabetes Screening Diabetes Screenin g [facility] Start: 2001 Fecal Occult Blood Fecal Occult Bloo d [facility] Start: 2001 Lipid 1996 panel - S keenan or Plasma Lipid Screening [facility] Start: 2001 Lipid panel Lipid Screening [facility] Start: 2001 Screening for malign ant neoplasm of colon [facility] Start: 2001 [facility] Start: [address] [facility] Start: 1996 Screening for malign ant neoplasm of breast Mammogram Screening [facility] Start: 1975 Urine microalbumin profile DTa P,Tdap,Td Vaccine (1 - Tdap) [facility] Start: 1974 Hepatitis C Screening Hepatitis C [facility] Start: 1974 Hepatitis C screening Hepatitis C [facility] Start: 1956 Covid-19 Vaccine (#1) Covid-19 Vacci ne (#1) [facility] Payers Date Payer Category Payer Unknown FOR[facility]LY [facility] [employer] [id number] 2022-Present [address] [place] [address] Indemnity [id number] 2022 Unknown [id number] 2021 Medicare MEDICARE MEDICAR E A AND B [id number] 2021-Present [phone] [place] [address] Medicare [id number] 2021 Medicare [id number] Social History Date Type Detail Facility Start: 07-20-2023 Tobacco smoking stat us NHIS Never smoked tobacco [facility] Start: 07-20-2023 Tobacco use and exposure Smoke less tobacco non-user [facility] Start: 07-20-2023 End: 08-03-2023 History of Social function [facility] Start: 07-20-2023 End: 08-03-2023 Tobacco use panel [facility] Start: 1955 Sex Assigned At Not on file [facility] Progress note 08-03-2023 Note Date & Type Note Facility 08-03-2023 Note HNO ID: [id number] Author: Shanel Ocasio RT(Mili) Service: ? Author Type: Deputy Building Guard Type: Progress Notes Filed: 08/03/2023 11:50 AM [...] RT Elizabeth(R) August 03, 2023 11:41 AM [facility] Progress note 08-03-2023 Note Date & Type Note Facility 08-03-2023 Note HNO ID: [id number] Author: Cecilia Lopez APRN.VINEYARD TENDER Service: ? Author Type: Nurse Practitioner Type: Progress Notes Filed: 08/03/2023 12:45 PM Note Text: Subjective The history is provided by the patient. No language and literature division chair was used. HPI Yisel Gonzalez is a [...] have confirmed and edited as necessary, the [facility] Review of Systems Constitutional: Negative for chills [...] warranting prompt ER evaluation. Cecilia Lopez APRN.RAS [facility] History of Present illness Narrative 08-03-2023 Cecilia Lopez APRN.RAS - 08/03/2023 11:31 AM EST Note Date & Type Note Facility 08-03-2023 History of Presen t illness Narrative Subjective The history is provided by the patient. No language and literature division chair was used. HPI Yisel Gonzalez is a [...] have confirmed and edited as necessary, the [facility] Review of Systems Constitutional: Negative for chills [...] detail warranting prompt ER evaluation. Cecilia Lopez APRN.VINEYARD TENDER documented in this encounter [facility] Progress note 07-20-2023 Note Date & Type Note Facility 07-20-2023 Note HNO ID: [id number] Author: Rose Sanz APRN.RAS Service: ? Author [...] agreeable to treatment plan. Rose Sanz APRN.RAS [facility] History of Present illness Narrative 07-20-2023 Rose Sanz APRN.VINEYARD TENDER - 07/20/2023 2:49 PM EST Note Date [...] Patient agreeable to treatment plan. Rose Sanz APRN.VINEYARD TENDER documented in this encounter [facility] Evaluation note Note Date & Type Note Facility documented in this encounter [facility] Evaluation note Note Date & Type Note Facility documented in this encounter [facility] Summary Purpose Family History No Family History [...] or prosecute any alcohol or drug abuse patient.[facility] the event this information is protected by the Federal Confidentiality of Alcohol and Drug Abuse Patient Records regulations: The Federal rules restrict any use of the information to criminally investigate or prosecute any alcohol or drug abuse patient.[facility] Reason for Visit (unrecogniz ed section and [...] BE BASED ON THE PRIMARY CLINICAL RECORDS. [employer] [facility]. provides no warranty or guarantee of the accuracy or completeness of information in this document.
== END | disposition home or self-care (01) ==
PROVIDERS: PCP Internal Medicine; Referring Provider Internal Medicine; Visit Provider Internal Medicine
DX: Z12.31 Encounter for screening mammogram for malignant neoplasm of breast (principal); Z78.0 Asymptomatic menopausal state
CPT/HCPCS: 77063; 77067; 77080

== ENCOUNTER → 2023-11-22 | Outpatient (CLI) | payer MEDICARE, OTHER, SELFPAY ==
--- NOTE | 2023-11-22 11:45 | RAD_ITS ---
INDICATION: Bilateral Hip Pain -- pain in right hip EXAMINATION/TECHNIQUE: X-RAY - XR Hips Bilateral with Pelvis when performed; 2 Views COMPARISON: No relevant prior comparison study available FINDINGS: PELVIC BONES: No displaced fracture, destructive or sclerotic lesions. Note that overlapping bowel shadows may however obscure fine detail. Sacroiliac joints are unremarkable. No widening of the pubic symphysis. HIPS: There are bilateral degenerative changes of the hips characterized by joint space narrowing and subchondral sclerosis. SOFT TISSUES: No soft tissue swelling or gas. RAD/Hips B/L min 2 views w/ Pelvis IMPRESSION: Degenerative changes of the hips. Electronically Signed: Rosey Mendoza MD at 15:42 EDT ,
[2023-11-22 13:29] LABS: AST(SGOT) 23 U/L (15-37); Alanine Aminotransfer ALT/SGPT 31 U/L (13-56); Albumin, Serum 3.7 g/dL (3.2-5.0); Alkaline Phosphatase 78 U/L (45-117); Anion Gap 5 (5-15); BUN 13 mg/dL (7-18); Calcium,Total 9.4 mg/dL (8.5-10.1); Chloride 106 mmol/L (98-107); Creatinine, Serum 0.86 mg/dL (0.55-1.02); EST Glomerular Filtration Rate 69 mL/min (>60); Est Glom Filt Rate - Afr Amer 84 mL/min (>60); Globulin 3.7 g/dL (2.2-4.2); Glucose 128 mg/dL (74-106); Potassium 4.3 mmol/L (3.5-5.1); Protein, Total 7.4 g/dL (6.4-8.2); Sodium Level 138 mmol/L (136-145); Thyroid Stim Hormone (TSH) 2.07 uIU/mL (0.358-3.74)
== END | disposition home or self-care (01) ==
PROVIDERS: PCP Internal Medicine; Referring Provider Internal Medicine; Visit Provider Internal Medicine
DX: M25.551 Pain in right hip (principal); E11.9 Type 2 diabetes mellitus without complications; M25.552 Pain in left hip; E03.9 Hypothyroidism, unspecified; I10 Essential (primary) hypertension
CPT/HCPCS: 36415; 73521; 80053; 84443

== ENCOUNTER → 2024-02-24 | Outpatient (CLI) | payer MEDICARE, OTHER, SELFPAY ==
[2024-02-24 12:34] LABS: Absolute Neutrophil Count 4.4 X10^3/uL (2.0-7.7); Basophil# 0.05 X10^3/uL; Basophil% 0.7 % (0-1); Eosinophil# 0.18 X10^3/uL; Eosinophils% 2.4 % (0-5); Hematocrit 40.4 % (37-47); Lymphocyte % 29.6 % (19-41); Mean Corp Hgb Conc 32.2 g/dL (32-36); Mean Corpuscular Hgb 29.5 pg (27.0-32.0); Mean Corpuscular Volume 91.6 fL (81-99); Mean Platelet Vol. 10.1 fl (6.2-12.0); Monocyte# 0.62 X10^3/uL; Monocyte% 8.3 % (0-10); NRBC Flagged by Analyzer 0 % (0-5); Neutrophil # 4.37 X10^3/uL (2.7-7.7); Neutrophil % 58.7 % (47-70); Platelet Count 228 K/mm3 (150-450); RBC Distribution Width CV 13.2 % (11.6-14.6); RBC Distribution Width SD 44.3 fl (35.1-43.9); Red Blood Count 4.41 M/mm3 (4.2-5.4); White Blood Count 7.4 K/mm3 (4.4-11.0)
[2024-02-24 13:10] LABS: Anion Gap 6 (5-15); BUN 16 mg/dL (7-18); BUN/Creat Ratio 16.7 RATIO (10-20); Calcium,Total 9.4 mg/dL (8.5-10.1); Chloride 106 mmol/L (98-107); Cholesterol 239 mg/dL (200); Creatinine, Serum 0.96 mg/dL (0.55-1.02); EST Glomerular Filtration Rate 62 mL/min (>60); Est Glom Filt Rate - Afr Amer 75 mL/min (>60); Glucose 138 mg/dL (74-106); High Density Lipoprotein 62 mg/dL; Potassium 4.2 mmol/L (3.5-5.1); Sodium Level 138 mmol/L (136-145); Thyroid Stim Hormone (TSH) 3.82 uIU/mL (0.358-3.74); Triglycerides 155 mg/dL; Very Low Density Lipoprotein 31 mg/dL (5-40)
== END | disposition home or self-care (01) ==
LOC: BIMLAB 10:33
PROVIDERS: PCP Internal Medicine; Referring Provider Internal Medicine; Visit Provider Internal Medicine
DX: E78.5 Hyperlipidemia, unspecified (principal); I10 Essential (primary) hypertension; E03.9 Hypothyroidism, unspecified
CPT/HCPCS: 36415; 80048; 80061; 84443; 85025

== ENCOUNTER 2024-04-27 09:30 | Outpatient (RCR) | payer MEDICARE, OTHER, SELFPAY ==
--- NOTE | 2024-02-21 14:47 | HP.PTEVAL ---
Patient's Visit Information Visit Information Visit Information: GABBY BOURGEOIS is a 68 year old F referred to Physical Therapy by Dr. Marcial Riley MD with a diagnosis of B hip pain/OA. Date of Evaluation: 02/21/24 Physical Therapist: GLYNN Yoo Visit Plan Frequency: 2x /Week Duration: 2 Months Plan: 2X week for 8 weeks for stretching of B hip flexors, B hip adductors and L glut medius, core strength, hip strength especially hip ext, abd and adduction with HEP HEP: PT and PT with hip abd to stretch adductors Subjective Subjective: R groin and L on the outside of the hip and years ago it was the opposite side. She had x-rays. Today she is having more trouble with her R knee it locks up and pops and hurts. She just got back from [place]... did a lot of sitting and overnight flight with no place to move her legs. Every time she stands up it pops and had to lock. She has been back almost 2 weeks and her knee is still doing this. She has a lot of joint cracking and popping. She has LBP. If she turns fast she gets it in the groin. Walking and pivoting in a store kill her. She gets some abby pain with turning the first few steps. She has no N&T. She has leg weakness when she stands and turns to look and will get a pain and then she feels weak. If she stand and does dishes the LB and then the hip pain will start. Vaccumming hurts as well. Pain R hip pain: Pain Intensity (Out of 10): 0 L hip pain: Pain Intensity (Out of 10): 0 R groin pain: Pain Intensity (Out of 10): 0 Pain Intensity Range: 8 Comment: when she turns L groin pain: Pain Intensity (Out of 10): 0 Pain Intensity Range: 2 Comment: when went to put shoe back pain: Pain Intensity (Out of 10): 0 Objective Objective: gait: walks with decrease stride length B and slighty WBOS Pt is able to heel and toe raise without issue Trunk AROM: flexion 75%, Ext 25%, SB B 75%, Rot B 25% (increase flank pain with rotation to the L ) LE MMT: B hip flex 4-/5, B knee ext 4/5, B knee flex 4-/5, R hip abd 9.9# and L 8.2# Pt has good piriformis flexibility on the L but increase pain and poor flexibility on the R but no pain. Pt has increase B hip flexor tightness and B hip adductor tightness. She has tenderness to palpation over the L glut medius. Bridge: 1/2 normal ROM bridge with slight pain. Balance/Special Test Scores Lower Extremity Functional Score: 44 Goals Goal 1:: I HEP Goal Time Frame: 6-8 Weeks Goal 2:: Decrease freq of pain in B hip and groin by 50% Goal Time Frame: 6-8 Weeks Goal 3:: Increase B hip abductor strength (at the time of the eval the R was 9.9# and L was 8.2# in sidelying) Goal Time Frame: 6-8 Weeks Goal 4:: Increase flexibility of B hip adductors and hip flexors, and L glut med Goal Time Frame: 6-8 Weeks Rehabilitation Potential Rehabilitation Potential: Good Anticipated Interventions Patient/Client Instruction: Educate patient on: Condition and Plan of Care For the Purpose of:: To decrease pain, To increase ROM, To improve nutrient delivery to tissue, To improve muscle performance and motor function, To improve ability to perform ADL's, To increase tolerance to activity/condition/position, To improve performance and independence with ADL's, To decrease level of supervision to perform tasks, To improve ability of physical actions for home/community/work/leisure, To improve gait and locomotor functions, To improve health of tissue, To decrease soft tissue restriction and To increase flexibility/ROM Therapeutic Exercise to Include: Strength training, Endurance training, Balance training, Body mechanics, Postural training, Flexibilty training, Gait and locomotor training, Neuromotor development, Passive ROM, Active ROM, Dynamic Lumbar Stabilization and Scapular Strength/Stabilization For the Purpose of:: To decrease pain, To increase ROM, To improve nutrient delivery to tissue, To improve muscle performance and motor function, To improve ability to perform ADL's, To increase tolerance to activity/condition/position, To improve performance and independence with ADL's, To decrease level of supervision to perform tasks, To improve ability of physical actions for home/community/work/leisure, To improve gait and locomotor functions, To improve health of tissue, To decrease soft tissue restriction, To increase flexibility/ROM, To improve endurance, To improve balance and To improve safety with gait Functional Training to Include: Gait training For the Purpose of:: To improve gait and locomotor functions Manual Therapy Techniques to Include: Mobilization, Passive ROM and Soft tissue mobilization For the Purpose of:: To decrease pain, To decrease swelling/inflammation, To increase ROM and To improve nutrient delivery to tissue Text: Thank you for the opportunity to evaluate your patient. For Medicare and Medicare HMO plans, please review the plan of care and approve it. It will need to be FAXED BACK to us at [phone] for Medicare purposes. For Medicare only, by signing this I certify the plan of care. Please let me know if there are questions or concerns regarding this plan of care. Physician Signature: Date:
--- NOTE | 2024-03-24 10:01 | HP.PTREVAL ---
Re-Evaluation Intro: Dr. Marcial Riley MD, It has been my pleasure to treat GABBY BOURGEOIS over the last 9 visits for B hip pain/OA. Please see the progress note below for an update on the physical therapy plan of care! Subjective Subjective: Pt likes the pool and has only been in there twice but no increase pain after the pool like on land. She would like to continue and see if it will help anymore. She had a CATSCAN. She is thinking some of this is RA issue and wants to see a maternity floor supervisor. She is still doing LTR and hip Adductor stretch, sit to stands Objective Objective/Function: R hip abd in supine R 13.3 and L 9 Improved hip flexibility with less pain Plan Plan Plan: 2X week for 8 weeks for AT for core stability, stretching of B hip flexors, B hip adductors and L glut medius, core strength, hip strength especially hip ext, abd and adduction with HEP Balance/Gait/Functional tests Balance/Special Test Scores Lower Extremity Functional Score: 48 Goals Goals Goal 1:: I HEP Goal Time Frame: 6-8 Weeks Goal Progress: Progressing Goal 2:: Decrease freq of pain in B hip and groin by 50% Goal Time Frame: 6-8 Weeks Goal Progress: Progressing Goal 3:: Increase B hip abductor strength (at the time of the eval the R was 9.9# and L was 8.2# in sidelying) Goal Time Frame: 6-8 Weeks Goal Progress: Progressing Goal 4:: Increase flexibility of B hip adductors and hip flexors, and L glut med Goal Time Frame: 6-8 Weeks Goal Progress: Progressing Anticipated Interventions Anticipated Interventions Patient/Client Instruction: Educate patient on: Condition and Plan of Care For the Purpose of:: To decrease pain, To increase ROM, To improve nutrient delivery to tissue, To improve muscle performance and motor function, To improve ability to perform ADL's, To increase tolerance to activity/condition/position, To improve performance and independence with ADL's, To decrease level of supervision to perform tasks, To improve ability of physical actions for home/community/work/leisure, To improve gait and locomotor functions, To improve health of tissue, To decrease soft tissue restriction and To increase flexibility/ROM Therapeutic Exercise to Include: Strength training, Endurance training, Balance training, Body mechanics, Postural training, Flexibilty training, Gait and locomotor training, Neuromotor development, Passive ROM, Active ROM, Dynamic Lumbar Stabilization and Scapular Strength/Stabilization For the Purpose of:: To decrease pain, To increase ROM, To improve nutrient delivery to tissue, To improve muscle performance and motor function, To improve ability to perform ADL's, To increase tolerance to activity/condition/position, To improve performance and independence with ADL's, To decrease level of supervision to perform tasks, To improve ability of physical actions for home/community/work/leisure, To improve gait and locomotor functions, To improve health of tissue, To decrease soft tissue restriction, To increase flexibility/ROM, To improve endurance, To improve balance and To improve safety with gait Functional Training to Include: Gait training For the Purpose of:: To improve gait and locomotor functions Manual Therapy Techniques to Include: Mobilization, Passive ROM and Soft tissue mobilization For the Purpose of:: To decrease pain, To decrease swelling/inflammation, To increase ROM and To improve nutrient delivery to tissue Re-Evaluation Ending Re-evaluation ending: Please do not hesitate to contact me at [phone] by phone or if you have questions or concerns regarding this new plan of care! Sincerely, GLYNN Yoo
--- NOTE | 2024-04-27 09:50 | HP.PTDCSUM_ITS ---
Discharge Summary D/C summary: It has been my pleasure to treat GABBY BOURGEOIS referred by Dr. Marcial Riley MD, with the diagnosis of B hip pain/OA for a total of 18 visit(s). Discharge Date: 04/27/24 Please see the following information for a summary of their discharge status. Subjective Subjective: Pt is thinking about joining and continuing her exercises in the pool. She has the exercises to do in the pool Pain R hip pain: Pain Intensity (Out of 10): 4 L hip pain: Pain Intensity (Out of 10): 4 R groin pain: Pain Intensity (Out of 10): 2 L groin pain: Pain Intensity (Out of 10): 4 back pain: Pain Intensity (Out of 10): 4 Overall Improvement % Improvement: 80 Objective Objective/Function: R hip abductor strength was 10.8# and L was 12.3# in sidelying) Flexibility: Pt still tight on the R hip flexor/piriformis Goals Goal 1:: I HEP Goal Progress: Goal Met Goal 2:: Decrease freq of pain in B hip and groin by 50% Goal Progress: Progressing Goal 3:: Increase B hip abductor strength (at the time of the eval the R was 9.9# and L was 8.2# in sidelying) Goal Progress: Goal Met Goal 4:: Increase flexibility of B hip adductors and hip flexors, and L glut med Goal Progress: Progressing Plan Plan: DC PT to [facility] pool routine D/C Information Discharge Comments: DC PT to [facility] d/c sentence: If there are questions or concerns regarding this patient's physical therapy, please feel free to call me at [phone]. Thank you for the referral of this patient. Sincerely, Adela Mosher, MPT Balance/Gait/Functional tests Balance/Special Test Scores Lower Extremity Functional Score: 57 Improvement % Improvement: 80
== END 2024-04-27 19:00 | disposition home or self-care (01) ==
LOC: PT 09:30
PROVIDERS: PCP Internal Medicine; Referring Provider Internal Medicine; Visit Provider Internal Medicine
DX: M25.551 Pain in right hip (principal); M25.552 Pain in left hip; M19.90 Unspecified osteoarthritis, unspecified site
CPT/HCPCS: 97110; 97113; 97162; 97530

== ENCOUNTER → 2024-06-26 | Outpatient (CLI) | payer MEDICARE, OTHER, SELFPAY ==
[2024-06-26 13:07] LABS: Cholesterol 244 mg/dL (200); High Density Lipoprotein 74 mg/dL; Triglycerides 127 mg/dL; Very Low Density Lipoprotein 25 mg/dL (5-40)
== END | disposition home or self-care (01) ==
PROVIDERS: PCP Internal Medicine; Referring Provider Internal Medicine; Visit Provider Internal Medicine
DX: E03.9 Hypothyroidism, unspecified (principal); E78.5 Hyperlipidemia, unspecified
CPT/HCPCS: 36415; 80061; 84443

== ENCOUNTER → 2024-10-02 | Outpatient (CLI) | payer MEDICARE, OTHER, SELFPAY ==
[2024-10-02 13:45] LABS: AST(SGOT) 21 U/L (15-37); Alanine Aminotransfer ALT/SGPT 27 U/L (13-56); Albumin, Serum 3.7 g/dL (3.2-5.0); Alkaline Phosphatase 81 U/L (45-117); Anion Gap 7 (5-15); BUN 13 mg/dL (7-18); BUN/Creat Ratio 12.7 RATIO (10-20); Calcium,Total 9.3 mg/dL (8.5-10.1); Chloride 105 mmol/L (98-107); Cholesterol 244 mg/dL (200); Creatinine, Serum 1.02 mg/dL (0.55-1.02); EST Glomerular Filtration Rate 57 mL/min (>60); Est Glom Filt Rate - Afr Amer 69 mL/min (>60); Globulin 3.8 g/dL (2.2-4.2); Glucose 112 mg/dL (74-106); High Density Lipoprotein 84 mg/dL; Potassium 4.2 mmol/L (3.5-5.1); Protein, Total 7.5 g/dL (6.4-8.2); Sodium Level 138 mmol/L (136-145); Triglycerides 78 mg/dL; Very Low Density Lipoprotein 16 mg/dL (5-40)
[2024-10-02 14:00] LABS: Hemoglobin A1c 6.8 % (3.8-5.6)
== END | disposition home or self-care (01) ==
LOC: BIMLAB 11:16
PROVIDERS: PCP Internal Medicine; Referring Provider Internal Medicine; Visit Provider Internal Medicine
DX: E11.69 Type 2 diabetes mellitus with other specified complication (principal); E78.5 Hyperlipidemia, unspecified; E03.9 Hypothyroidism, unspecified
CPT/HCPCS: 36415; 80053; 80061; 83036; 84443

== ENCOUNTER → 2024-12-28 | Outpatient (CLI) | payer MEDICARE, OTHER, SELFPAY ==
--- NOTE | 2024-12-28 12:00 | BI_ITS ---
EXAM: SCRN MAMM (CAD)W/SANDRA BILAT DATE: 12/28/2024 CLINICAL HISTORY: F, Age 69 y/o , BREAST CANCER SCREENING BREAST CANCER RISK ASSESSMENT: Has not been calculated. TECHNIQUE: Bilateral screening digital breast tomosynthesis with 2D and 3D images. Computer aided detection. COMPARISON: Prior exam(s) dated 08/27/2023. FINDINGS: TISSUE DENSITY: The breast tissue is almost entirely fatty. Bilateral Breast Mammographic Findings: A 5 mm partially obscured isodense mass is seen in the medial, far anterior aspect of the right breast and is slightly larger when compared to the prior exam. Further workup is indicated. Benign-appearing round microcalcifications are seen in the right breast. Benign-appearing round microcalcifications are seen in the left breast. There are no suspicious masses, suspicious clustered microcalcifications, architectural distortion or secondary signs of malignancy identified in the left breast. BI/SCRN MAMM (CAD)W/SANDRA BILAT IMPRESSION: OVERALL FINAL ASSESSMENT: BIRADS 0 Incomplete: Need additional imaging evaluati on and/or prior mammograms for comparison. RECOMMENDATION: The patient should return for an LM view of the right breast as well as spot co mpression CC and spot compression MLO view of the right breast mass. An ultrasound may also be needed. A letter with findings and recommendations will be mailed to the patient. Reading Location: [id number]
== END | disposition home or self-care (01) ==
LOC: OPBI 11:50
PROVIDERS: PCP Internal Medicine; Referring Provider Internal Medicine; Visit Provider Internal Medicine
DX: Z12.31 Encounter for screening mammogram for malignant neoplasm of breast (principal)
CPT/HCPCS: 77063; 77067

== ENCOUNTER → 2025-01-05 | Outpatient (CLI) | payer MEDICARE, OTHER, SELFPAY ==
--- NOTE | 2025-01-05 13:23 | BI_ITS ---
EXAM: DIAG MAMM W/CAD, UNILAT 01/05/2025 CLINICAL HISTORY: F, Age 69 y/o , ABN MAMM TECHNIQUE: Compression spot views of the right breast in the mediolateral oblique and craniocaudad projections were obtained. 90 degree lateral projection was obtained as well. Computer aided detection. COMPARISON: Prior exam(s) dated December 28, 2024.. FINDINGS: TISSUE DENSITY: The breast tissue is almost entirely fatty. Persistent 2.5 mm well-defined nodule in the retroareolar region of the breast. Correlation with ultrasound recommended. BI/DIAG MAMM W/CAD, UNILAT IMPRESSION: OVERALL FINAL ASSESSMENT: BIRADS 0 Incomplete: Need additional imaging evaluati on and/or prior mammograms for comparison.. RECOMMENDATION: Targeted sonographic correlation recommended. A letter with findings and recommendations will be mailed to the patient. Reading Location: [place] [address]
--- NOTE | 2025-01-05 13:23 | US_ITS ---
PROCEDURE: BREAST LIMITED UNILATERAL N/A REASON FOR EXAM: ABN AMM Abnormal screening mammogram. TECHNIQUE: Targeted right breast ultrasound. COMPARISON: Prior mammogram done earlier in the day. FINDINGS: Right breast ultrasound was targeted to the retroareolar region.. The mammographic abnormality corresponds to an 8 mm x 4 mm x 4 mm cluster of cysts at the 12 o'clock position of the breast at 1 cm from the nipple. US/Breast Limited Unilateral IMPRESSION: The mammographic abnormality corresponds to a cluster of cysts at the 12 o'cloc k position of the breast at 1 cm from the nipple. Follow-up code: Routine Follow-up Reading Location: [place] [id number]
== END | disposition home or self-care (01) ==
LOC: OPBI 13:21
PROVIDERS: PCP Internal Medicine; Referring Provider Internal Medicine; Visit Provider Internal Medicine
DX: R92.8 Other abnormal and inconclusive findings on diagnostic imaging of breast (principal)
CPT/HCPCS: 76642; 77065

== ENCOUNTER → 2025-05-21 | Outpatient (CLI) | payer MEDICARE, OTHER, SELFPAY ==
[2025-05-21 19:27] LABS: Hematocrit 40.2 % (37-47); Hemoglobin 13.2 g/dL (12.0-15.0); Immature Granulocytes Count 0.010 X10^3/uL (0.0-0.0); Mean Corp Hgb Conc 32.8 g/dL (32-36); Mean Corpuscular Volume 92.4 fL (81-99); Mean Platelet Vol. 10.2 fl (6.2-12.0); NRBC Flagged by Analyzer 0 % (0-5); Platelet Count 194 K/mm3 (150-450); RBC Distribution Width CV 13.4 % (11.6-14.6); RBC Distribution Width SD 46.4 fl (35.1-43.9); Red Blood Count 4.35 M/mm3 (4.2-5.4); White Blood Count 7.2 K/mm3 (4.4-11.0)
[2025-05-21 19:40] LABS: Creatinine, Urine (random) 151.00 mg/dL (28.00-217.00); Microalbumin,Random Urine < 12.0 mg/L (<20 mg/L)
[2025-05-21 19:47] LABS: AST(SGOT) 25 U/L (<=31); Alanine Aminotransfer ALT/SGPT 19 U/L (<=34); Albumin, Serum 4.4 g/dL (3.4-4.8); Alkaline Phosphatase 89 U/L (35-104); Anion Gap 12 (5-15); BUN 14 mg/dL (4-19); BUN/Creat Ratio 15.2 RATIO (10-20); Calcium,Total 9.8 mg/dL (7.6-11.0); Carbon Dioxide 26.4 mmol/L (21.0-32.0); Chloride 102 mmol/L (98-108); Cholesterol 248 mg/dL (<=200); Globulin 2.8 g/dL (2.2-4.2); Glucose 99 mg/dL (70-99); Low Density Lipoprotein Calc. 150 mg/dL; Potassium 4.0 mmol/L (3.3-5.1); Triglycerides 169 mg/dL; Very Low Density Lipoprotein 34 mg/dL (5-40); Vitamin D,25 Hydroxy 26.1 ng/mL (30-100); cholesterol:hdl ratio screen 3.87
== END | disposition home or self-care (01) ==
LOC: MTLAB 16:09
PROVIDERS: PCP Internal Medicine; Referring Provider Internal Medicine; Visit Provider Internal Medicine
DX: E11.69 Type 2 diabetes mellitus with other specified complication (principal); I10 Essential (primary) hypertension; E78.5 Hyperlipidemia, unspecified; E03.9 Hypothyroidism, unspecified; M81.0 Age-related osteoporosis without current pathological fracture
CPT/HCPCS: 36415; 80053; 80061; 82043; 82306; 82570; 84443; 85025